=== PATIENT | female | born 1995 | race Caucasian/White ===

== ENCOUNTER 2019-01-05 19:14 | Emergency (ER) | payer SELFPAY ==
[2019-01-05 19:52] VITALS: TEMP 98.3; O2SAT 99
[2019-01-05] MEDS ORDERED: KETOROLAC TROMETHAMINE INJ 30 MG/ML VIAL IM ONE (20:01)
[2019-01-05] MEDS ORDERED: MORPHINE SULFATE INJ 10 MG/ML VIAL IM ONE (20:01)
[2019-01-05] MEDS ORDERED: CLINDAMYCIN PHOSPHATE 150 MG/ML VIAL IM ONE (20:02)
[2019-01-05] MEDS ORDERED: cefTRIAXone SODIUM 1 GM VIAL IM ONE (20:02)
--- NOTE | 2019-01-05 20:05 | ED.PDOC ---
History of Present Illness - General Chief Complaint: Dental/Mouth Stated Complaint: toothache Time Seen by Provider: 01/05/19 20:01 Source: patient - History of Present Illness Timing/Duration: abrupt, this morning Severity: severe EENT Location: dental Improving Factors: nothing Worsening Factors: eating Associated Symptoms: tooth pain Allergies/Adverse Reactions: Allergies NO KNOWN ALLERGY Allergy (Verified 01/05/19 19:52) Home Medications: Ambulatory Orders Amoxicillin 500 mg PO TID #30 cap 01/05/19 Lidocaine Viscous 2% [Xylocaine Viscous 2%] 2 % MT Q6HR 5 Days fredi 01/05/19 Naproxen [Naprosyn] 500 mg PO 9A5P #10 tab 01/05/19 Tramadol HCl 50 mg PO Q6HR #12 tab 01/05/19 Review of Systems - Review of Systems Constitutional: States: no symptoms reported EENTM: States: mouth pain Respiratory: States: no symptoms reported Cardiology: States: no symptoms reported Gastrointestinal/Abdominal: States: no symptoms reported Genitourinary: States: no symptoms reported Musculoskeletal: States: no symptoms reported Skin: States: no symptoms reported Neurological: States: no symptoms reported Endocrine: States: no symptoms reported Hematologic/Lymphatic: States: no symptoms reported All other Systems: Reviewed and Negative Past Medical History (General) - Patient Medical History Hx Diabetes: No Surgical History: tonsillectomy - Female History Patient is a Female of Child Bearing Age (10 -59 yrs old): Yes Family Medical History - Family History Mother Family History: Unknown Physical Exam - Physical Exam General Appearance: Alert Eye Exam: bilateral normal Ear Exam: bilateral ear: auricle normal Throat Exam: dental tenderness Neck: full range of motion, supple Cardiovascular/Respiratory: regular rate, rhythm Neurologic: no motor/sensory deficits, alert, normal mood/affect, oriented x 3 Skin Exam: normal color, warm/dry Departure - Departure Clinical Impression: Dental caries, Dental abscess, Painful mouth Disposition: Discharge to Home or Self Care Condition: Good Departure Forms: ED Discharge - Pt. Copy, Patient Portal Self Enrollment Diet: resume usual diet Activity: walking as tolerated Prescriptions: Lidocaine Viscous 2% [Xylocaine Viscous 2%] 2 % MT Q6HR 5 Days fredi Amoxicillin 500 mg PO TID #30 cap Home Medications: Ambulatory Orders Amoxicillin 500 mg PO TID #30 cap 01/05/19 Lidocaine Viscous 2% [Xylocaine Viscous 2%] 2 % MT Q6HR 5 Days fredi 01/05/19 Naproxen [Naprosyn] 500 mg PO 9A5P #10 tab 01/05/19 Tramadol HCl 50 mg PO Q6HR #12 tab 01/05/19 Additional Instructions: Refer to Dentist Follow up PCP in 1-2 days
[2019-01-05] MEDS ORDERED: LIDOCAINE 1% 10 ML VIAL INJ ONE (20:42)
[2019-01-05 21:05] VITALS: BP 119/77
== END 2019-01-05 21:05 | disposition home or self-care (01) ==
LOC: ER 19:14
DX: K04.7 Periapical abscess without sinus (principal); K02.9 Dental caries, unspecified
CPT/HCPCS: J0696; J1885; J2270; J3490

== ENCOUNTER 2019-04-13 17:09 | Emergency (ER) | payer SELFPAY ==
[2019-04-13] MEDS ORDERED: cefTRIAXone SODIUM 1 GM VIAL IM ONE (17:24)
[2019-04-13] MEDS ORDERED: HYDROcodone 7.5MG/APAP 325MG 1 EA TAB PO ONE (17:24)
[2019-04-13] MEDS ORDERED: CLINDAMYCIN HCL CAP 150 MG CAP PO ONE (17:24)
[2019-04-13 17:25] VITALS: BP 140/91; TEMP 98.9; O2SAT 99
--- NOTE | 2019-04-13 17:27 | ED.PDOC ---
History of Present Illness - General Chief Complaint: Dental/Mouth Stated Complaint: RLJ pain Time Seen by Provider: 04/13/19 17:14 Source: patient Exam Limitations: no limitations - History of Present Illness Initial Comments: the patient presents with 24 hours of severe pain to the right lower molar area. She does have dental caries and has had infected dental caries before. No nausea or vomiting. Pain is severe. She does have mild swelling adjacent to the tooth laterally. No fever. Vital signs are stable. Timing/Duration: 24 hours Severity: severe Improving Factors: nothing Worsening Factors: eating Associated Symptoms: denies symptoms Allergies/Adverse Reactions: Allergies NO KNOWN ALLERGY Allergy (Verified 01/05/19 19:52) Home Medications: Ambulatory Orders Amoxicillin 500 mg PO TID #30 cap 01/05/19 Lidocaine Viscous 2% [Xylocaine Viscous 2%] 2 % MT Q6HR 5 Days fredi 01/05/19 Naproxen [Naprosyn] 500 mg PO 9A5P #10 tab 01/05/19 Tramadol HCl 50 mg PO Q6HR #12 tab 01/05/19 Clindamycin HCl 300 mg PO Q8HR #30 cap 04/13/19 Tramadol HCl 50 mg PO Q8HR PRN #20 tab 04/13/19 Review of Systems - Review of Systems Constitutional: States: no symptoms reported EENTM: States: see HPI Respiratory: States: no symptoms reported Cardiology: States: no symptoms reported Gastrointestinal/Abdominal: States: no symptoms reported Genitourinary: States: no symptoms reported Musculoskeletal: States: no symptoms reported Skin: States: no symptoms reported Neurological: States: no symptoms reported Endocrine: States: no symptoms reported All other Systems: No Change from Baseline Past Medical History (General) - Patient Medical History Hx Stroke: No Hx of COPD: No Hx Cardiac Disorders: No Hx Hypertension: No Hx Diabetes: No Hx Cancer: No Surgical History: other - Vaccination History Hx Tetanus, Diphtheria Vaccination: Yes Hx Influenza Vaccination: Yes Hx Pneumococcal Vaccination: No Immunizations Up to Date: Yes - Social History Hx Tobacco Use: Yes Hx Alcohol Use: Yes Hx Substance Use: No Hx Substance Use Treatment: No Hx Depression: No - Female History Patient is a Female of Child Bearing Age (10 -59 yrs old): Yes Patient : No - Denies Family Medical History - Family History Mother Family History: Unknown Living Status: Hx Family Cancer: Yes - Lung Hx Family;Other: Paternal Grandmother: breast cancer Physical Exam - Physical Exam General Appearance: Alert Eye Exam: bilateral normal Ears, Nose, Throat: hearing grossly normal, other - see hpi Neck: full range of motion, supple Respiratory: no respiratory distress, no accessory muscle use Cardiovascular/Chest: normal peripheral pulses, regular rate, rhythm, no edema Peripheral Pulses: radial,right: 2+, radial,left: 2+ Gastrointestinal/Abdominal: other - obese Rectal Exam: deferred Extremity: normal range of motion, no pedal edema, normal capillary refill Neurologic: alert, normal mood/affect, oriented x 3 Skin Exam: normal color Comments: Vital Signs - 8 hr 04/13/19 04/13/19 17:10 17:19 Temperature 98.9 F Pulse Rate [R 123 H 123 H finger] Respiratory 18 Rate Blood Pressure 140/91 [L arm] O2 Sat by Pulse 99 Oximetry Progress - Progress Progress: 04/13/19 17:28 the patient is a 24-year-old female presenting to emergency room secondary to pain from an infected dental caries to the right lower molar area. No obvious abscess to drain at this point. No evidence of any sepsis. The patient is receiving a dose of Rocephin IM and oral clindamycin. She'll be placed on oral clindamycin for the next 10 days. She was given a dose of pain medication here and will be written for some tramadol for as needed use. Motrin can be used additionally as needed. She does need to see a dentist. ER warnings were given. [email or web address] [email or web address] [id number] Departure - Departure Clinical Impression: Infected dental caries Disposition: Discharge to Home or Self Care Condition: Fair Departure Forms: ED Discharge - Pt. Copy, Patient Portal Self Enrollment Instructions: DI for Mouth Lesions Diet: regular diet Activity: increase activity as tolerated Prescriptions: Clindamycin HCl 300 mg PO Q8HR #30 cap Tramadol HCl 50 mg PO Q8HR PRN #20 tab PRN Reason: Moderate Pain Home Medications: Ambulatory Orders Amoxicillin 500 mg PO TID #30 cap 01/05/19 Lidocaine Viscous 2% [Xylocaine Viscous 2%] 2 % MT Q6HR 5 Days fredi 01/05/19 Naproxen [Naprosyn] 500 mg PO 9A5P #10 tab 01/05/19 Tramadol HCl 50 mg PO Q6HR #12 tab 01/05/19 Clindamycin HCl 300 mg PO Q8HR #30 cap 04/13/19 Tramadol HCl 50 mg PO Q8HR PRN #20 tab 04/13/19 Additional Instructions: the patient is a 24-year-old female presenting to emergency room secondary to pain from an infected dental caries to the right lower molar area. No obvious abscess to drain at this point. No evidence of any sepsis. The patient is receiving a dose of Rocephin IM and oral clindamycin. She'll be placed on oral clindamycin for the next 10 days. She was given a dose of pain medication here and will be written for some tramadol for as needed use. Motrin can be used additionally as needed. She does need to see a dentist. ER warnings were given.
== END 2019-04-13 17:49 | disposition home or self-care (01) ==
LOC: ER 17:09
DX: K04.7 Periapical abscess without sinus (principal); K02.9 Dental caries, unspecified; Z87.891 Personal history of nicotine dependence